=== PATIENT | female | born 1995 | race Caucasian/White ===

== ENCOUNTER 2019-10-06 15:21 | Emergency (ER) | payer SELFPAY ==
[~2019-10-06] VITALS: Ht 162.6 cm; Wt 68.2 kg
[2019-10-06 15:32] VITALS: Ht 162.6 cm; Wt 68.2 kg
[2019-10-06] MEDS ORDERED: KEFLEX500 MG PO (15:53)
[2019-10-06] MEDS ORDERED: NAPROSYN500 MG PO (15:53)
[2019-10-06 16:58] VITALS: BP 112/72
== END 2019-10-06 16:59 | disposition home or self-care (01) ==
LOC: D.ER 15:21
DX: S81.011A Laceration without foreign body, right knee, initial encounter (principal); S89.91XA Unspecified injury of right lower leg, initial encounter; W19.XXXA Unspecified fall, initial encounter; Y93.9 Activity, unspecified; Y92.9 Unspecified place or not applicable